=== PATIENT | female | born 1935 | race Caucasian/White ===

== ENCOUNTER 2017-12-10 09:49 | Outpatient (CLI) | payer MEDICARE, MEDICAID ==
[~2017-12-10 09:49] MED LIST: NO HOME MEDS
[2017-12-10] MEDS ORDERED: GLIP10TA11 PO (12:04)
[2017-12-10] MEDS ORDERED: ASPI-1265 PO (12:05)
== END 2017-12-10 14:00 | disposition home or self-care (01) ==
LOC: WOUND CARE 09:49
PROVIDERS: ATTEND Surgery
DX: E11.622 Type 2 diabetes mellitus with other skin ulcer (principal); I70.243 Atherosclerosis of native arteries of left leg with ulceration of ankle; L89.529 Pressure ulcer of left ankle, unspecified stage; L89.519 Pressure ulcer of right ankle, unspecified stage; L97.321 Non-pressure chronic ulcer of left ankle limited to breakdown of skin; L97.311 Non-pressure chronic ulcer of right ankle limited to breakdown of skin; L89.229 Pressure ulcer of left hip, unspecified stage; L89.219 Pressure ulcer of right hip, unspecified stage; L98.491 Non-pressure chronic ulcer of skin of other sites limited to breakdown of skin; L97.811 Non-pressure chronic ulcer of other part of right lower leg limited to breakdown of skin; E11.621 Type 2 diabetes mellitus with foot ulcer; L89.899 Pressure ulcer of other site, unspecified stage; L97.521 Non-pressure chronic ulcer of other part of left foot limited to breakdown of skin; L97.511 Non-pressure chronic ulcer of other part of right foot limited to breakdown of skin; L89.629 Pressure ulcer of left heel, unspecified stage; L97.421 Non-pressure chronic ulcer of left heel and midfoot limited to breakdown of skin; L97.411 Non-pressure chronic ulcer of right heel and midfoot limited to breakdown of skin; Z86.73 Personal history of transient ischemic attack (TIA), and cerebral infarction without residual deficits
CPT/HCPCS: 36416; 82948; 93925; 99215; A4649; A6196; A6206; A6212; A6213; A6446

== ENCOUNTER 2018-01-14 09:28 | Day surgery (SDC) | payer MEDICARE, MEDICAID ==
[~2018-01-14 09:28] MED LIST changes: +ASPI-1265 PO; +ATOR10TA PO; +FERR140T PO; +GLIP10TA11 PO; +LACT-28 PO; +LACT1CAP26 PO; +METF500T6 PO; -NO HOME MEDS
== END 2018-01-14 12:45 | disposition home or self-care (01) ==
LOC: WOUND CARE 09:28
PROVIDERS: ATTEND Surgery
DX: T81.89XA Other complications of procedures, not elsewhere classified, initial encounter (principal); E11.622 Type 2 diabetes mellitus with other skin ulcer; L89.223 Pressure ulcer of left hip, stage 3; L89.213 Pressure ulcer of right hip, stage 3; L89.894 Pressure ulcer of other site, stage 4; L89.610 Pressure ulcer of right heel, unstageable; L89.519 Pressure ulcer of right ankle, unspecified stage; L98.491 Non-pressure chronic ulcer of skin of other sites limited to breakdown of skin; L97.411 Non-pressure chronic ulcer of right heel and midfoot limited to breakdown of skin; L97.311 Non-pressure chronic ulcer of right ankle limited to breakdown of skin; L97.511 Non-pressure chronic ulcer of other part of right foot limited to breakdown of skin; E43 Unspecified severe protein-calorie malnutrition; E11.52 Type 2 diabetes mellitus with diabetic peripheral angiopathy with gangrene; I96 Gangrene, not elsewhere classified; R53.2 Functional quadriplegia; E11.69 Type 2 diabetes mellitus with other specified complication; M86.8X7 Other osteomyelitis, ankle and foot; Z79.4 Long term (current) use of insulin; Z79.01 Long term (current) use of anticoagulants; Z79.82 Long term (current) use of aspirin; Z79.899 Other long term (current) drug therapy; Z86.73 Personal history of transient ischemic attack (TIA), and cerebral infarction without residual deficits; Y83.8 Other surgical procedures as the cause of abnormal reaction of the patient, or of later complication, without mention of misadventure at the time of the procedure; Y92.89 Other specified places as the place of occurrence of the external cause
CPT/HCPCS: 99215; A6021; A6196; A6206; A6212; A6213

== ENCOUNTER 2018-01-26 08:35 | Day surgery (SDC) | payer MEDICARE, MEDICAID | END 2018-01-26 11:25 | disposition home or self-care (01) | LOC: WOUND CARE 08:35 | PROVIDERS: ATTEND Surgery | DX: T87.89 Other complications of amputation stump (principal); E11.622 Type 2 diabetes mellitus with other skin ulcer; L89.223 Pressure ulcer of left hip, stage 3; L89.213 Pressure ulcer of right hip, stage 3; L89.894 Pressure ulcer of other site, stage 4; L89.610 Pressure ulcer of right heel, unstageable; L89.519 Pressure ulcer of right ankle, unspecified stage; L98.491 Non-pressure chronic ulcer of skin of other sites limited to breakdown of skin; L97.411 Non-pressure chronic ulcer of right heel and midfoot limited to breakdown of skin; L89.890 Pressure ulcer of other site, unstageable; L97.311 Non-pressure chronic ulcer of right ankle limited to breakdown of skin; L97.511 Non-pressure chronic ulcer of other part of right foot limited to breakdown of skin; E43 Unspecified severe protein-calorie malnutrition; E11.52 Type 2 diabetes mellitus with diabetic peripheral angiopathy with gangrene; I96 Gangrene, not elsewhere classified; R53.2 Functional quadriplegia; E11.69 Type 2 diabetes mellitus with other specified complication; M86.8X7 Other osteomyelitis, ankle and foot; Z79.4 Long term (current) use of insulin; Z79.01 Long term (current) use of anticoagulants; Z79.82 Long term (current) use of aspirin; Z79.899 Other long term (current) drug therapy; Z86.73 Personal history of transient ischemic attack (TIA), and cerebral infarction without residual deficits; Y83.5 Amputation of limb(s) as the cause of abnormal reaction of the patient, or of later complication, without mention of misadventure at the time of the procedure | CPT/HCPCS: 11042; 11043; 11046; A6021; A6196; A6206; A6212; A6213 ==

== ENCOUNTER 2018-02-09 08:41 | Day surgery (SDC) | payer MEDICARE, MEDICAID ==
[~2018-02-09 08:41] MED LIST changes: -METF500T6 PO
== END 2018-02-09 11:01 | disposition home or self-care (01) ==
LOC: WOUND CARE 08:41
PROVIDERS: ATTEND Surgery
DX: T81.89XD Other complications of procedures, not elsewhere classified, subsequent encounter (principal); E11.622 Type 2 diabetes mellitus with other skin ulcer; L89.223 Pressure ulcer of left hip, stage 3; L89.213 Pressure ulcer of right hip, stage 3; L89.894 Pressure ulcer of other site, stage 4; L98.491 Non-pressure chronic ulcer of skin of other sites limited to breakdown of skin; L89.519 Pressure ulcer of right ankle, unspecified stage; L97.311 Non-pressure chronic ulcer of right ankle limited to breakdown of skin; E11.621 Type 2 diabetes mellitus with foot ulcer; L89.610 Pressure ulcer of right heel, unstageable; L97.411 Non-pressure chronic ulcer of right heel and midfoot limited to breakdown of skin; L89.890 Pressure ulcer of other site, unstageable; L97.511 Non-pressure chronic ulcer of other part of right foot limited to breakdown of skin; E43 Unspecified severe protein-calorie malnutrition; E11.52 Type 2 diabetes mellitus with diabetic peripheral angiopathy with gangrene; I96 Gangrene, not elsewhere classified; R53.2 Functional quadriplegia; E11.69 Type 2 diabetes mellitus with other specified complication; M86.8X7 Other osteomyelitis, ankle and foot; G89.29 Other chronic pain; Z79.4 Long term (current) use of insulin; Z79.01 Long term (current) use of anticoagulants; Z79.82 Long term (current) use of aspirin; Z79.899 Other long term (current) drug therapy; Z86.73 Personal history of transient ischemic attack (TIA), and cerebral infarction without residual deficits; Y83.5 Amputation of limb(s) as the cause of abnormal reaction of the patient, or of later complication, without mention of misadventure at the time of the procedure
CPT/HCPCS: 11042; A4649; A6021; A6206; A6212; 99215

== ENCOUNTER 2018-03-02 08:15 | Day surgery (SDC) | payer MEDICARE, MEDICAID ==
[2018-03-02] MEDS ORDERED: LIDOcaine 2% 5ml jelly ONE (09:54)
== END 2018-03-02 12:22 | disposition home or self-care (01) ==
LOC: WOUND CARE 08:15
PROVIDERS: ATTEND Surgery
DX: T87.89 Other complications of amputation stump (principal); E11.622 Type 2 diabetes mellitus with other skin ulcer; L89.223 Pressure ulcer of left hip, stage 3; L89.213 Pressure ulcer of right hip, stage 3; L89.894 Pressure ulcer of other site, stage 4; L98.491 Non-pressure chronic ulcer of skin of other sites limited to breakdown of skin; L89.519 Pressure ulcer of right ankle, unspecified stage; L97.311 Non-pressure chronic ulcer of right ankle limited to breakdown of skin; E11.621 Type 2 diabetes mellitus with foot ulcer; L89.610 Pressure ulcer of right heel, unstageable; L97.411 Non-pressure chronic ulcer of right heel and midfoot limited to breakdown of skin; L89.890 Pressure ulcer of other site, unstageable; L97.511 Non-pressure chronic ulcer of other part of right foot limited to breakdown of skin; E43 Unspecified severe protein-calorie malnutrition; E11.52 Type 2 diabetes mellitus with diabetic peripheral angiopathy with gangrene; I96 Gangrene, not elsewhere classified; R53.2 Functional quadriplegia; E11.69 Type 2 diabetes mellitus with other specified complication; M86.8X7 Other osteomyelitis, ankle and foot; G89.29 Other chronic pain; Z79.4 Long term (current) use of insulin; Z79.01 Long term (current) use of anticoagulants; Z79.82 Long term (current) use of aspirin; Z79.899 Other long term (current) drug therapy; Z86.73 Personal history of transient ischemic attack (TIA), and cerebral infarction without residual deficits; Y83.5 Amputation of limb(s) as the cause of abnormal reaction of the patient, or of later complication, without mention of misadventure at the time of the procedure
CPT/HCPCS: 11042; A6212; A6213; A6222

== ENCOUNTER 2018-03-30 08:22 | Day surgery (SDC) | payer MEDICARE, MEDICAID ==
[~2018-03-30 08:22] MED LIST changes: -FERR140T PO; +FERR140T2 PO
== END 2018-03-30 10:33 | disposition home or self-care (01) ==
LOC: WOUND CARE 08:22
PROVIDERS: ATTEND Surgery
DX: T87.89 Other complications of amputation stump (principal); E11.622 Type 2 diabetes mellitus with other skin ulcer; L89.223 Pressure ulcer of left hip, stage 3; L89.213 Pressure ulcer of right hip, stage 3; L89.894 Pressure ulcer of other site, stage 4; L98.491 Non-pressure chronic ulcer of skin of other sites limited to breakdown of skin; L97.311 Non-pressure chronic ulcer of right ankle limited to breakdown of skin; E11.621 Type 2 diabetes mellitus with foot ulcer; L89.610 Pressure ulcer of right heel, unstageable; L97.411 Non-pressure chronic ulcer of right heel and midfoot limited to breakdown of skin; L89.890 Pressure ulcer of other site, unstageable; L97.511 Non-pressure chronic ulcer of other part of right foot limited to breakdown of skin; E43 Unspecified severe protein-calorie malnutrition; E11.52 Type 2 diabetes mellitus with diabetic peripheral angiopathy with gangrene; I96 Gangrene, not elsewhere classified; R53.2 Functional quadriplegia; E11.69 Type 2 diabetes mellitus with other specified complication; M86.8X7 Other osteomyelitis, ankle and foot; G89.29 Other chronic pain; Z79.4 Long term (current) use of insulin; Z79.01 Long term (current) use of anticoagulants; Z79.82 Long term (current) use of aspirin; Z79.899 Other long term (current) drug therapy; Z86.73 Personal history of transient ischemic attack (TIA), and cerebral infarction without residual deficits; Y83.5 Amputation of limb(s) as the cause of abnormal reaction of the patient, or of later complication, without mention of misadventure at the time of the procedure
CPT/HCPCS: 17250; A6021; A6196; A6206; A6212

== ENCOUNTER 2018-04-20 08:43 | Day surgery (SDC) | payer MEDICARE, MEDICAID | END 2018-04-20 11:27 | disposition home or self-care (01) | LOC: WOUND CARE 08:43 | PROVIDERS: ATTEND Surgery | DX: T87.89 Other complications of amputation stump (principal); E11.622 Type 2 diabetes mellitus with other skin ulcer; L89.223 Pressure ulcer of left hip, stage 3; L89.213 Pressure ulcer of right hip, stage 3; L89.894 Pressure ulcer of other site, stage 4; L98.491 Non-pressure chronic ulcer of skin of other sites limited to breakdown of skin; L97.311 Non-pressure chronic ulcer of right ankle limited to breakdown of skin; E11.621 Type 2 diabetes mellitus with foot ulcer; L89.610 Pressure ulcer of right heel, unstageable; L97.411 Non-pressure chronic ulcer of right heel and midfoot limited to breakdown of skin; L89.890 Pressure ulcer of other site, unstageable; L97.511 Non-pressure chronic ulcer of other part of right foot limited to breakdown of skin; E43 Unspecified severe protein-calorie malnutrition; E11.52 Type 2 diabetes mellitus with diabetic peripheral angiopathy with gangrene; I96 Gangrene, not elsewhere classified; R53.2 Functional quadriplegia; E11.69 Type 2 diabetes mellitus with other specified complication; M86.8X7 Other osteomyelitis, ankle and foot; G89.29 Other chronic pain; Z79.4 Long term (current) use of insulin; Z79.01 Long term (current) use of anticoagulants; Z79.82 Long term (current) use of aspirin; Z79.899 Other long term (current) drug therapy; Z86.73 Personal history of transient ischemic attack (TIA), and cerebral infarction without residual deficits; Y83.5 Amputation of limb(s) as the cause of abnormal reaction of the patient, or of later complication, without mention of misadventure at the time of the procedure | CPT/HCPCS: 11042; 97597; 97598; A6021; A6196; A6212 ==

== ENCOUNTER 2018-05-11 08:09 | Day surgery (SDC) | payer MEDICARE, MEDICAID ==
[2018-05-11] MEDS ORDERED: LIDOcaine/PRILOcaine 5gm cream TP ONE (09:38)
== END 2018-05-11 10:38 | disposition home or self-care (01) ==
LOC: WOUND CARE 08:09
PROVIDERS: ATTEND Surgery
DX: T87.89 Other complications of amputation stump (principal); E11.622 Type 2 diabetes mellitus with other skin ulcer; L89.223 Pressure ulcer of left hip, stage 3; L89.213 Pressure ulcer of right hip, stage 3; L89.894 Pressure ulcer of other site, stage 4; L98.491 Non-pressure chronic ulcer of skin of other sites limited to breakdown of skin; L97.311 Non-pressure chronic ulcer of right ankle limited to breakdown of skin; E11.621 Type 2 diabetes mellitus with foot ulcer; L89.610 Pressure ulcer of right heel, unstageable; L97.411 Non-pressure chronic ulcer of right heel and midfoot limited to breakdown of skin; L89.890 Pressure ulcer of other site, unstageable; L97.511 Non-pressure chronic ulcer of other part of right foot limited to breakdown of skin; E43 Unspecified severe protein-calorie malnutrition; E11.52 Type 2 diabetes mellitus with diabetic peripheral angiopathy with gangrene; I96 Gangrene, not elsewhere classified; R53.2 Functional quadriplegia; E11.69 Type 2 diabetes mellitus with other specified complication; M86.8X7 Other osteomyelitis, ankle and foot; G89.29 Other chronic pain; Z79.4 Long term (current) use of insulin; Z79.01 Long term (current) use of anticoagulants; Z79.82 Long term (current) use of aspirin; Z79.899 Other long term (current) drug therapy; Z86.73 Personal history of transient ischemic attack (TIA), and cerebral infarction without residual deficits; Y83.5 Amputation of limb(s) as the cause of abnormal reaction of the patient, or of later complication, without mention of misadventure at the time of the procedure
CPT/HCPCS: 11042; 17250; A6021; A6206; A6212

== ENCOUNTER 2018-06-01 08:13 | Day surgery (SDC) | payer MEDICARE, MEDICAID ==
[2018-06-01] MEDS ORDERED: LIDOcaine/PRILOcaine 5gm cream TP ONE (09:50)
== END 2018-06-01 11:11 | disposition home or self-care (01) ==
LOC: WOUND CARE 08:13
PROVIDERS: ATTEND Surgery
DX: T87.89 Other complications of amputation stump (principal); E11.622 Type 2 diabetes mellitus with other skin ulcer; L89.213 Pressure ulcer of right hip, stage 3; L89.894 Pressure ulcer of other site, stage 4; L98.492 Non-pressure chronic ulcer of skin of other sites with fat layer exposed; E11.621 Type 2 diabetes mellitus with foot ulcer; L89.893 Pressure ulcer of other site, stage 3; L97.511 Non-pressure chronic ulcer of other part of right foot limited to breakdown of skin; E43 Unspecified severe protein-calorie malnutrition; E11.52 Type 2 diabetes mellitus with diabetic peripheral angiopathy with gangrene; I96 Gangrene, not elsewhere classified; R53.2 Functional quadriplegia; E11.69 Type 2 diabetes mellitus with other specified complication; M86.8X7 Other osteomyelitis, ankle and foot; G89.29 Other chronic pain; Z79.4 Long term (current) use of insulin; Z79.01 Long term (current) use of anticoagulants; Z79.82 Long term (current) use of aspirin; Z79.899 Other long term (current) drug therapy; Z86.73 Personal history of transient ischemic attack (TIA), and cerebral infarction without residual deficits; Y83.5 Amputation of limb(s) as the cause of abnormal reaction of the patient, or of later complication, without mention of misadventure at the time of the procedure
CPT/HCPCS: 11042; 11043; A6266; A6021; A6206; A6212; A6213; A6446

== ENCOUNTER 2018-06-15 08:05 | Day surgery (SDC) | payer MEDICARE, MEDICAID ==
[2018-06-18] MEDS ORDERED: CLIN150C8 PO (14:46)
== END 2018-06-15 11:10 | disposition home or self-care (01) ==
LOC: WOUND CARE 08:05
PROVIDERS: ATTEND Surgery
DX: T87.89 Other complications of amputation stump (principal); E11.622 Type 2 diabetes mellitus with other skin ulcer; L89.213 Pressure ulcer of right hip, stage 3; L89.223 Pressure ulcer of left hip, stage 3; L89.894 Pressure ulcer of other site, stage 4; L98.492 Non-pressure chronic ulcer of skin of other sites with fat layer exposed; E11.621 Type 2 diabetes mellitus with foot ulcer; L89.893 Pressure ulcer of other site, stage 3; L97.511 Non-pressure chronic ulcer of other part of right foot limited to breakdown of skin; E43 Unspecified severe protein-calorie malnutrition; E11.52 Type 2 diabetes mellitus with diabetic peripheral angiopathy with gangrene; I96 Gangrene, not elsewhere classified; R53.2 Functional quadriplegia; E11.69 Type 2 diabetes mellitus with other specified complication; M86.8X7 Other osteomyelitis, ankle and foot; G89.29 Other chronic pain; Z79.4 Long term (current) use of insulin; Z79.01 Long term (current) use of anticoagulants; Z79.82 Long term (current) use of aspirin; Z79.899 Other long term (current) drug therapy; Z86.73 Personal history of transient ischemic attack (TIA), and cerebral infarction without residual deficits; Y83.5 Amputation of limb(s) as the cause of abnormal reaction of the patient, or of later complication, without mention of misadventure at the time of the procedure
CPT/HCPCS: 97597; A6021; A6206; A6213

== ENCOUNTER 2018-06-22 08:10 | Day surgery (SDC) | payer MEDICARE, MEDICAID ==
[~2018-06-22 08:10] MED LIST changes: +CLIN150C8 PO
== END 2018-06-22 11:18 | disposition home or self-care (01) ==
LOC: WOUND CARE 08:10
PROVIDERS: ATTEND Surgery
DX: E11.622 Type 2 diabetes mellitus with other skin ulcer (principal); L89.213 Pressure ulcer of right hip, stage 3; L89.223 Pressure ulcer of left hip, stage 3; L89.894 Pressure ulcer of other site, stage 4; L98.492 Non-pressure chronic ulcer of skin of other sites with fat layer exposed; E11.621 Type 2 diabetes mellitus with foot ulcer; L89.893 Pressure ulcer of other site, stage 3; L97.511 Non-pressure chronic ulcer of other part of right foot limited to breakdown of skin; E43 Unspecified severe protein-calorie malnutrition; E11.52 Type 2 diabetes mellitus with diabetic peripheral angiopathy with gangrene; I96 Gangrene, not elsewhere classified; R53.2 Functional quadriplegia; E11.69 Type 2 diabetes mellitus with other specified complication; M86.8X7 Other osteomyelitis, ankle and foot; G89.29 Other chronic pain; Z79.4 Long term (current) use of insulin; Z79.01 Long term (current) use of anticoagulants; Z79.82 Long term (current) use of aspirin; Z79.899 Other long term (current) drug therapy; Z86.73 Personal history of transient ischemic attack (TIA), and cerebral infarction without residual deficits
CPT/HCPCS: 11043; 87070; 87075; 87102; 87176; A6266; 87077; 87186; A6021; A6206; A6212; A6213; A6446

== ENCOUNTER 2018-07-08 08:20 | Day surgery (SDC) | payer MEDICARE, MEDICAID | END 2018-07-08 10:47 | disposition home or self-care (01) | LOC: WOUND CARE 08:20 | PROVIDERS: ATTEND Surgery | DX: E11.622 Type 2 diabetes mellitus with other skin ulcer (principal); L89.213 Pressure ulcer of right hip, stage 3; L89.223 Pressure ulcer of left hip, stage 3; L89.894 Pressure ulcer of other site, stage 4; L98.492 Non-pressure chronic ulcer of skin of other sites with fat layer exposed; E11.621 Type 2 diabetes mellitus with foot ulcer; L89.893 Pressure ulcer of other site, stage 3; L97.511 Non-pressure chronic ulcer of other part of right foot limited to breakdown of skin; E43 Unspecified severe protein-calorie malnutrition; E11.52 Type 2 diabetes mellitus with diabetic peripheral angiopathy with gangrene; I96 Gangrene, not elsewhere classified; R53.2 Functional quadriplegia; E11.69 Type 2 diabetes mellitus with other specified complication; M86.8X7 Other osteomyelitis, ankle and foot; G89.29 Other chronic pain; Z79.4 Long term (current) use of insulin; Z79.01 Long term (current) use of anticoagulants; Z79.82 Long term (current) use of aspirin; Z79.899 Other long term (current) drug therapy; Z86.73 Personal history of transient ischemic attack (TIA), and cerebral infarction without residual deficits | CPT/HCPCS: 97597; A6021; A6206; A6212; A6213 ==

== ENCOUNTER 2018-07-31 12:38 | Inpatient (IN) | payer MEDICARE, MEDICAID ==
[~2018-07-31] VITALS: Ht 157.5 cm; Wt 49.6 kg
--- NOTE | 2018-07-31 12:45 | NUR ---
PATIENT AGREED TO BE EVALUATED IN HALLWAY 10.
--- NOTE | 2018-07-31 14:13 | NUR ---
SON AT BEDSIDE REPORTS MULTIPLE SKIN BREAKDOWN INCLUDING COCCYX AREA.
[2018-07-31 15:09] LABS: BASOPHILS % (AUTO) 0.4 % (0-1); EOSINOPHILS # (AUTO) 0.1 X10'3 (0-0.9); EOSINOPHILS % (AUTO) 0.9 % (0-6); HEMATOCRIT 35.1 % (35.0-45.0); HEMOGLOBIN 11.2 g/dl (12.0-16.0); LYMPHOCYTES # (AUTO) 2.1 X10'3 (1.1-4.8); LYMPHOCYTES % (AUTO) 21.2 % (21-51); MEAN CORPUSCULAR HEMOGLOBIN 28.1 PG (27.0-31.0); MEAN CORPUSCULAR HGB CONC 31.9 % (33.0-36.5); MEAN CORPUSCULAR VOLUME 88.3 FL (78-98); MONOCYTES # (AUTO) 0.4 X10'3 (0-0.9); MONOCYTES % (AUTO) 4.1 % (2-12); NEUTROPHILS # (AUTO) 7.5 X10'3 (1.8-7.7); NEUTROPHILS % (AUTO) 73.4 % (42-75); PLATELET COUNT 406 X10'3 (140-440); RED BLOOD COUNT 3.98 X10'6 (4.20-5.60); RED CELL DISTRIBUTION WIDTH 13.2 % (11.5-14.5); WHITE BLOOD COUNT 10.1 X10'3 (4.5-11.0)
[2018-07-31 15:20] LABS: ALANINE AMINOTRANSFERASE 14 U/L (12-78); ALBUMIN 2.5 G/DL (3.4-5.0); ALBUMIN/GLOBULIN RATIO 0.5 (1.1-1.5); ALKALINE PHOSPHATASE 81 IU/L (46-116); ANION GAP 7 (8-16); ASPARTATE AMINO TRANSFERASE 9 U/L (10-37); BILIRUBIN,TOTAL 0.2 MG/DL (0.1-1.0); BLOOD UREA NITROGEN 24 MG/DL (7-18); BUN/CREATININE RATIO 51.1 (6.6-38.0); CALCIUM 8.5 MG/DL (8.5-10.1); CHLORIDE 106 MMOL/L (99-107); CREATININE 0.47 MG/DL (0.40-0.90); GLUCOSE 244 MG/DL (70-104); SODIUM 142 MMOL/L (135-145); TOTAL CARBON DIOXIDE 28.8 MMOL/L (24-32); TOTAL PROTEIN 7.1 G/DL (6.4-8.2); eGFR > 90 ML/MIN
[2018-07-31 15:27] LABS: POTASSIUM 2.9 MMOL/L (3.5-5.1)
[2018-07-31] MEDS ORDERED: piperacillin/tazo 3.375gm/50ml 50 ML IV ONE (15:55)
[2018-07-31] MEDS ORDERED: vancomycin inj 1,000 MG in normal saline 250ml IV soln 250 ML IV STA (15:57)
[2018-07-31] MEDS ORDERED: vancomycin/NS 1 GM ADD-VANTAGE 250 ML X 1 DOSE IV ONE (16:00)
[2018-07-31] MEDS ORDERED: METF500T PO (16:19)
[2018-07-31] MEDS ORDERED: HYDROcodone/acetaminophen 5mg/325mg tablet PO PRN (17:30)
[2018-07-31] MEDS ORDERED: ondansetron/PF 4mg/2ml inj IV PRN (17:30)
[2018-07-31] MEDS ORDERED: mag hydrox/Alum hydrox/simeth 30ml oral suspension PO PRN (17:30)
[2018-07-31] MEDS ORDERED: dextrose ORAL solution 15 GM/59 ML bottle PO PRN ×2 (17:30)
[2018-07-31] MEDS ORDERED: morphine 4 MG/ML inj SYRINge IV PRN (17:30)
[2018-07-31] MEDS ORDERED: dextrose 50%-water 50ml dispensing syringe IV PRN ×2 (17:30)
[2018-07-31] MEDS ORDERED: MESSAGE TO PHARMACY PO ONE (17:30)
[2018-07-31] MEDS ORDERED: magnesium 4gm in 100ml NS 100 ML IV PRN (17:30)
[2018-07-31] MEDS ORDERED: potassium Cl 20 mEq SR tablet PO PRN ×2 (17:30)
[2018-07-31] MEDS ORDERED: acetaminophen 325mg tablet PO PRN ×2 (17:30)
[2018-07-31] MEDS ORDERED: magnesium Cl slow-release 64mg tablet PO PRN (17:30)
[2018-07-31] MEDS ORDERED: glucagon, human recombinant 1mg kit SUBCUT PRN (17:30)
[2018-07-31] MEDS ORDERED: magnesium 2GM in 50ml NS 50 ML IV PRN (17:30)
[2018-07-31] MEDS ORDERED: potassium Cl 40MEQ/NS 500ml 500 ML IV PRN (17:30)
[2018-07-31] MEDS: normal saline 1000ml 1,000 ML IV SCH (17:33)
[2018-07-31] MEDS: ferrous sulfate ER tablet 140 MG TABLET.ER PO SCH (20:00)
[2018-07-31] MEDS: docusate sod 100mg capsule PO SCH (20:00)
[2018-07-31] MEDS: heparin, porcine 5000 units/ml vial SQ SCH (20:19)
[2018-07-31] MEDS: potassium Cl 40MEQ/NS 500ml 500 ML IV PRN (20:29)
[2018-07-31] MEDS: insulin glargine (Lantus) pen - multi-dose SQ SCH (20:59)
[2018-07-31] MEDS ORDERED: temazepam 15mg capsule PO PRN (21:00)
[2018-08-01] MEDS: potassium Cl 40MEQ/NS 500ml 500 ML IV PRN (01:32)
--- NOTE | 2018-08-01 04:53 | NUR ---
PT HAD FECES INSIDE BRIEF, CLEANED PT, MOVED PT TO HOSPITAL BED AND SEND BOWEL SPECIMIN TO LAB TO TEST FOR C. DIFF. PT NOT PLACED BACK IN BRIEF, INSTEAD PLACED ON DRY FLOWS. PT STABLE AND COMFORTABLE AT THIS TIME.
[2018-08-01] MEDS: normal saline 1000ml 1,000 ML IV SCH ×2 (06:59→20:06)
--- NOTE | 2018-08-01 07:20 | NUR ---
cdiff rejected because it was to formed.
--- NOTE | 2018-08-01 07:37 | NUR ---
pt in no obvious distress. breathing well. not answering questions.
[2018-08-01 07:40] LABS: BASOPHILS % (AUTO) 0.4 % (0-1); EOSINOPHILS # (AUTO) 0.1 X10'3 (0-0.9); EOSINOPHILS % (AUTO) 0.8 % (0-6); HEMATOCRIT 36.5 % (35.0-45.0); HEMOGLOBIN 11.4 g/dl (12.0-16.0); LYMPHOCYTES # (AUTO) 2.4 X10'3 (1.1-4.8); LYMPHOCYTES % (AUTO) 23.8 % (21-51); MEAN CORPUSCULAR HEMOGLOBIN 27.7 PG (27.0-31.0); MEAN CORPUSCULAR HGB CONC 31.3 % (33.0-36.5); MEAN CORPUSCULAR VOLUME 88.5 FL (78-98); MEAN PLATELET VOLUME 8.3 FL (7.4-10.4); MONOCYTES # (AUTO) 0.5 X10'3 (0-0.9); MONOCYTES % (AUTO) 4.8 % (2-12); NEUTROPHILS # (AUTO) 7.3 X10'3 (1.8-7.7); NEUTROPHILS % (AUTO) 70.2 % (42-75); PLATELET COUNT 346 X10'3 (140-440); RED BLOOD COUNT 4.13 X10'6 (4.20-5.60); RED CELL DISTRIBUTION WIDTH 13.6 % (11.5-14.5); WHITE BLOOD COUNT 10.3 X10'3 (4.5-11.0)
[2018-08-01] MEDS: K and/or MAG REPLACEMENT MC SCH (08:00)
[2018-08-01] MEDS: docusate sod 100mg capsule PO SCH ×2 (08:00→19:58)
[2018-08-01 08:01] LABS: ALBUMIN 2.5 G/DL (3.4-5.0); ANION GAP 8 (8-16); BLOOD UREA NITROGEN 18 MG/DL (7-18); BUN/CREATININE RATIO 40.9 (6.6-38.0); CALCIUM 8.6 MG/DL (8.5-10.1); CHLORIDE 111 MMOL/L (99-107); CHOL/HDL RATIO 6.4 (0.00-4.99); CHOLESTEROL 212 MG/DL (0-200); CREATININE 0.44 MG/DL (0.40-0.90); GLUCOSE 139 MG/DL (70-104); HDL CHOLESTEROL 33 MG/DL (35-60); LDL CHOLESTEROL 142 MG/DL (50-100); POTASSIUM 4.2 MMOL/L (3.5-5.1); SODIUM 146 MMOL/L (135-145); TOTAL CARBON DIOXIDE 26.8 MMOL/L (24-32); TRIGLYCERIDES 178 MG/DL (20-135); eGFR > 90 ML/MIN
[2018-08-01] MEDS: aspirin 81mg tab.chew PO SCH (08:23)
[2018-08-01] MEDS: heparin, porcine 5000 units/ml vial SQ SCH ×2 (08:24→19:59)
[2018-08-01] MEDS: ferrous sulfate ER tablet 140 MG TABLET.ER PO SCH ×2 (08:58→19:58)
[2018-08-01] MEDS: vancomycin/NS 1 GM ADD-VANTAGE 250 ML IV SCH (17:00)
--- NOTE | 2018-08-01 18:30 | NUR ---
Received report from primary care nurse Nora HOOKS. Assumed patient care. Patient sitting up in bed watching TV. In no apparent distress on room air. Call light and items of frequent use within reach. Will continue to monitor for changes. Addendum: 08/02/18 at 0309 by Huong Patricio RN omit. Wrong patient
[2018-08-01 19:00] VITALS: BP 153/70
--- NOTE | 2018-08-01 19:02 | NUR ---
Problems reprioritized. Patient report given, questions answered & plan of care reviewed with Huong HOOKS.
--- NOTE | 2018-08-01 19:09 | NUR ---
Received report from Aislinn HOOKS. Assumed patient care. Patient is awake and alert but nonverbal. In no apparent distress. Call light and items of frequent use within reach. Will continue to monitor for changes.
[2018-08-01] MEDS: insulin glargine (Lantus) pen - multi-dose SQ SCH (21:00)
[2018-08-02] VITALS: BP 150/65
[2018-08-02 05:25] LABS: BASOPHILS # (AUTO) 0.1 X10'3 (0-0.2); BASOPHILS % (AUTO) 0.8 % (0-1); EOSINOPHILS # (AUTO) 0.1 X10'3 (0-0.9); EOSINOPHILS % (AUTO) 0.9 % (0-6); HEMATOCRIT 32.6 % (35.0-45.0); HEMOGLOBIN 10.1 g/dl (12.0-16.0); LYMPHOCYTES # (AUTO) 2.3 X10'3 (1.1-4.8); LYMPHOCYTES % (AUTO) 27.6 % (21-51); MEAN CORPUSCULAR HEMOGLOBIN 27.1 PG (27.0-31.0); MEAN CORPUSCULAR VOLUME 87.5 FL (78-98); MEAN PLATELET VOLUME 8.8 FL (7.4-10.4); MONOCYTES # (AUTO) 0.3 X10'3 (0-0.9); NEUTROPHILS # (AUTO) 5.5 X10'3 (1.8-7.7); NEUTROPHILS % (AUTO) 66.7 % (42-75); PLATELET COUNT 338 X10'3 (140-440); RED BLOOD COUNT 3.73 X10'6 (4.20-5.60); RED CELL DISTRIBUTION WIDTH 13.4 % (11.5-14.5); WHITE BLOOD COUNT 8.3 X10'3 (4.5-11.0)
[2018-08-02 05:54] LABS: ALBUMIN 2.2 G/DL (3.4-5.0); ANION GAP 10 (8-16); BLOOD UREA NITROGEN 11 MG/DL (7-18); BUN/CREATININE RATIO 33.3 (6.6-38.0); CALCIUM 8.1 MG/DL (8.5-10.1); CHLORIDE 109 MMOL/L (99-107); CREATININE 0.33 MG/DL (0.40-0.90); GLUCOSE 113 MG/DL (70-104); MAGNESIUM 1.8 MG/DL (1.5-2.4); SODIUM 144 MMOL/L (135-145); TOTAL CARBON DIOXIDE 25.2 MMOL/L (24-32); eGFR > 90 ML/MIN
--- NOTE | 2018-08-02 06:38 | NUR ---
Reported off to Aislinn HOOKS. Patient is awake and alert on room air. In no apparent distress. Call light and items of frequent use within reach.
[2018-08-02] MEDS ORDERED: lisinopril 10 MG tablet PO SCH (08:00)
[2018-08-02] MEDS: K and/or MAG REPLACEMENT MC SCH (08:00)
[2018-08-02] MEDS: normal saline 1000ml 1,000 ML IV SCH (08:31)
[2018-08-02] MEDS: aspirin 81mg tab.chew PO SCH (08:32)
[2018-08-02] MEDS: ferrous sulfate 300mg/5ml UD oral liquid PO SCH ×2 (08:32→20:00)
[2018-08-02] MEDS: heparin, porcine 5000 units/ml vial SQ SCH ×2 (08:33→20:07)
[2018-08-02] MEDS: docusate sodium 100mg/10ml UD cup PO SCH ×2 (08:34→20:06)
[2018-08-02] MEDS: potassium Cl 40MEQ/NS 500ml 500 ML IV PRN (08:41)
--- NOTE | 2018-08-02 11:49 | NUR ---
Wound consult: Pt with multiple wounds. 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 Per H&P on right lower extremity black eschar present over the fifth toe on the lateral side, signs of chronic wound present over second left toe, and second right toe showing signs of ischemia and early necrosis. Pt also with hx T2DM with current A1c 7.5. Per physical assessment pt nonverbal and A/O x1, DM and protein ed not appropriate at this time. Consult states pt is very thin, current wt is stable with documented wt from previous visits. Per documentation in previous records pt height it 60", currently recorded at 62", new BMI using 60" is 18.1, this still puts pt as underweight. Pt currently on a pureed heart healthy diet with documented PO intake 25/100/100% at breakfast this AM meeting nutrient needs. Noted that pt with severe weakness and some fluid retention. Pt currently meets criteria for malnutrition, MD notified. Will continue to follow. Recommendations: 1) Continue with pureed heart healthy diet 2) Monitor need for ONS 3) Wt per rx Addendum: 08/02/18 at [address] Amended: Links added.
--- NOTE | 2018-08-02 13:23 | NUR ---
11AM VITALS WERE 170'S SYSTOLIC, DR WOODS NOTIFIED, SHE SAID SHE WOULD ORDER BP MED FOR PT, SHE ORDERED AMLODIPINE FOR TOMORROW MORNING. PAGED HER TO CLAIRIFY ORDER IF SHE WANTED IT FOR TODAY. UNABLE TO GET AHOLD OF HER. RECHECKED BP AND IT IS NOW 139/69, HR 70. PT EATING, WITH AIDE. NO NEED FOR BP MED RIGHT NOW, WILL MONITOR.
[2018-08-02] MEDS: vancomycin/NS 1 GM ADD-VANTAGE 250 ML IV SCH (17:28)
--- NOTE | 2018-08-02 18:30 | NUR ---
Received report from JESSEE Tao and JESSEE Del Valle. Patient is awake and alert on room air, in no apparent distress. PCT at bedside. Call light and items of frequent use within reach. Will continue to monitor.
--- NOTE | 2018-08-02 18:40 | NUR ---
Problems reprioritized. Patient report given, questions answered & plan of care reviewed with sergio.
[2018-08-02 20:00] VITALS: BP 156/69
[2018-08-02] MEDS: insulin Lispro (HumaLOG) vial - multi-dose SQ SCH (21:54)
[2018-08-02] MEDS: insulin glargine (Lantus) pen - multi-dose SQ SCH (21:55)
[2018-08-03] VITALS: BP 144/63
[2018-08-03] MEDS ORDERED: furosemide 40mg/4ml inj IV ONE (00:05)
[2018-08-03] MEDS: normal saline 1000ml 1,000 ML IV SCH (00:19)
--- NOTE | 2018-08-03 06:11 | NUR ---
Problems reprioritized. Patient report given, questions answered & plan of care reviewed with JESSEE Melendez.
--- NOTE | 2018-08-03 06:13 | NUR ---
Patient in room [facility]. I have received report from JESSEE Tovar and had the opportunity to ask questions and assume patient care. Patient resting at this time. In no apparent distress on 2L NC. Call light and items of frequent use in reach of patient.
[2018-08-03 06:14] LABS: ALBUMIN 2.2 G/DL (3.4-5.0); ANION GAP 10 (8-16); BLOOD UREA NITROGEN 14 MG/DL (7-18); BUN/CREATININE RATIO 23.3 (6.6-38.0); CALCIUM 8.4 MG/DL (8.5-10.1); CHLORIDE 105 MMOL/L (99-107); GLUCOSE 301 MG/DL (70-104); MAGNESIUM 1.7 MG/DL (1.5-2.4); POTASSIUM 3.7 MMOL/L (3.5-5.1); SODIUM 141 MMOL/L (135-145); TOTAL CARBON DIOXIDE 25.7 MMOL/L (24-32); eGFR > 90 ML/MIN
[2018-08-03 06:18] LABS: BASOPHILS % (AUTO) 0.3 % (0-1); EOSINOPHILS % (AUTO) 0.1 % (0-6); HEMATOCRIT 32.2 % (35.0-45.0); HEMOGLOBIN 10.6 g/dl (12.0-16.0); LYMPHOCYTES # (AUTO) 1.6 X10'3 (1.1-4.8); LYMPHOCYTES % (AUTO) 11.7 % (21-51); MEAN CORPUSCULAR HEMOGLOBIN 28.8 PG (27.0-31.0); MEAN CORPUSCULAR HGB CONC 32.9 % (33.0-36.5); MEAN CORPUSCULAR VOLUME 87.5 FL (78-98); MEAN PLATELET VOLUME 9.3 FL (7.4-10.4); MONOCYTES # (AUTO) 0.4 X10'3 (0-0.9); MONOCYTES % (AUTO) 2.7 % (2-12); NEUTROPHILS # (AUTO) 11.5 X10'3 (1.8-7.7); NEUTROPHILS % (AUTO) 85.2 % (42-75); PLATELET COUNT 376 X10'3 (140-440); RED BLOOD COUNT 3.68 X10'6 (4.20-5.60); RED CELL DISTRIBUTION WIDTH 13.4 % (11.5-14.5); WHITE BLOOD COUNT 13.5 X10'3 (4.5-11.0)
[2018-08-03 07:00] VITALS: BP 130/48
[2018-08-03] MEDS: amLODIPine 5mg tablet PO SCH (08:00)
[2018-08-03] MEDS: docusate sodium 100mg/10ml UD cup PO SCH ×2 (08:00→20:21)
[2018-08-03] MEDS: aspirin 81mg tab.chew PO SCH (08:00)
[2018-08-03] MEDS: ferrous sulfate 300mg/5ml UD oral liquid PO SCH ×2 (08:00→20:21)
[2018-08-03] MEDS: lisinopril 10 MG tablet PO SCH (08:00)
[2018-08-03] MEDS: K and/or MAG REPLACEMENT MC SCH (08:00)
[2018-08-03] MEDS: heparin, porcine 5000 units/ml vial SQ SCH ×2 (08:00→20:21)
--- NOTE | 2018-08-03 09:00 | NUR ---
patient not opening eyes to voice or pain. Patient localizes to pain but will not wake up. Charge nurse (Varsha) came in to assess the patient and had no response either. Will page Dr. Mistry.
[2018-08-03] MEDS: insulin Lispro (HumaLOG) vial - multi-dose SQ SCH (09:09)
[2018-08-03 11:00] VITALS: BP 140/68
--- NOTE | 2018-08-03 11:00 | NUR ---
Dr. Mistry to see patient. Dr. Mistry did a sternal rub and patient opened eyes. Dr. Mistry says this is probably baseline. Will continue to monitor patient.
[2018-08-03] MEDS ORDERED: VANCOMYCIN LEVEL IV NR (16:30)
[2018-08-03] MEDS: vancomycin/NS 1 GM ADD-VANTAGE 250 ML IV SCH (17:15)
--- NOTE | 2018-08-03 18:54 | NUR ---
Problems reprioritized. Patient report given, questions answered & plan of care reviewed with JESSEE Tovar. Patient sleeping at this time. Call light and items of frequent use in reach of patient
--- NOTE | 2018-08-03 19:02 | NUR ---
Patient have not had dinner - will not administer nutritional/correctional insulin as her BG was 80mg/dL.
--- NOTE | 2018-08-03 19:15 | NUR ---
Patient unresponsive to voice, sternal rub done and opened eyes. O2 Saturation is 71% 2L NC. telecommunications technician and Salena RN at bedside positioned patient to high helms's and suctioned patient. O2 Sat now up to 90%. 1916 MD Rajiv called and he deferred to hospitalist care. 1922 MD Guillermina called, came by and checked on patient. Placed on non-rebreather - now O2 sat at 96%. Will continue to monitor.
[2018-08-03 20:00] VITALS: BP 140/64
[2018-08-03] MEDS: lactobacillus rhamnosus 10,000 MMU CELLS/CAPSULE PO SCH (20:00)
[2018-08-03] MEDS: insulin glargine (Lantus) pen - multi-dose SQ SCH (20:33)
[2018-08-04] VITALS: BP 132/57
--- NOTE | 2018-08-04 01:15 | NUR ---
Patient in room [facility]. I have received report from JESSEE Tovar and had the opportunity to ask questions and assume patient care.
--- NOTE | 2018-08-04 02:00 | NUR ---
Jason Murcia RN have reviewed JESSEE Tovar physical assessment charting and agree with her documentation.
[2018-08-04] MEDS: normal saline 1000ml 1,000 ML IV SCH ×2 (04:22→16:55)
--- NOTE | 2018-08-04 04:45 | NUR ---
Called by RN to NT Suction patient.Patient currently of 50% venti mask with an SpO2 of 96-97%. Auscultation reveals diminished breath sounds with few rhonchi. NT suction not indicated at this time. RN to page RT if conditions change.
[2018-08-04 05:22] LABS: BASOPHILS % (AUTO) 0.1 % (0-1); EOSINOPHILS % (AUTO) 0 % (0-6); HEMATOCRIT 32.6 % (35.0-45.0); HEMOGLOBIN 10.6 g/dl (12.0-16.0); LYMPHOCYTES # (AUTO) 1.4 X10'3 (1.1-4.8); LYMPHOCYTES % (AUTO) 11.6 % (21-51); MEAN CORPUSCULAR HEMOGLOBIN 28.3 PG (27.0-31.0); MEAN CORPUSCULAR HGB CONC 32.4 % (33.0-36.5); MEAN CORPUSCULAR VOLUME 87.2 FL (78-98); MEAN PLATELET VOLUME 8.7 FL (7.4-10.4); MONOCYTES # (AUTO) 0.2 X10'3 (0-0.9); NEUTROPHILS # (AUTO) 10.8 X10'3 (1.8-7.7); NEUTROPHILS % (AUTO) 86.3 % (42-75); PLATELET COUNT 368 X10'3 (140-440); RED BLOOD COUNT 3.74 X10'6 (4.20-5.60); RED CELL DISTRIBUTION WIDTH 13.4 % (11.5-14.5); WHITE BLOOD COUNT 12.4 X10'3 (4.5-11.0)
[2018-08-04 05:37] LABS: ANION GAP 9 (8-16); BLOOD UREA NITROGEN 14 MG/DL (7-18); CALCIUM 8.6 MG/DL (8.5-10.1); CHLORIDE 107 MMOL/L (99-107); GLUCOSE 90 MG/DL (70-104); MAGNESIUM 1.7 MG/DL (1.5-2.4); POTASSIUM 3.1 MMOL/L (3.5-5.1); SODIUM 144 MMOL/L (135-145); TOTAL CARBON DIOXIDE 28.1 MMOL/L (24-32); eGFR > 90 ML/MIN
--- NOTE | 2018-08-04 06:20 | NUR ---
Problems reprioritized. Patient report given, questions answered & plan of care reviewed with JESSEE Andres.
--- NOTE | 2018-08-04 07:31 | NUR ---
Notified Dr Mistry of patients condition this morning. Patients is on 50% Venti mask sats are 98%, Patients RR 20 Patient is non responsive to name sternal rub patient winces but will not open eyes or respond to commands. Per Dr Mistry he would like patients sats to be 93% paged RT to assist with venti mask.
--- NOTE | 2018-08-04 07:36 | NUR ---
Changed patients Venti mask to 35% on 12L will reassess and monitor patients O2 sats
[2018-08-04 07:37] VITALS: BP 124/73
[2018-08-04] MEDS: ipratropium/albuterol 3ml nebule NEB SCH ×3 (07:50→20:18)
[2018-08-04] MEDS ORDERED: ipratropium/albuterol 3ml nebule ONE (07:50)
[2018-08-04] MEDS: budesonide 0.5mg/2ml UD nebule IH SCH ×2 (07:51→20:19)
[2018-08-04] MEDS: K and/or MAG REPLACEMENT MC SCH (08:00)
[2018-08-04] MEDS: amLODIPine 5mg tablet PO SCH (08:00)
[2018-08-04] MEDS: docusate sodium 100mg/10ml UD cup PO SCH ×2 (08:00→20:00)
[2018-08-04] MEDS: lisinopril 10 MG tablet PO SCH (08:00)
[2018-08-04] MEDS: lactobacillus rhamnosus 10,000 MMU CELLS/CAPSULE PO SCH ×2 (08:00→20:00)
[2018-08-04] MEDS: aspirin 81mg tab.chew PO SCH (08:00)
[2018-08-04] MEDS: ferrous sulfate 300mg/5ml UD oral liquid PO SCH ×2 (08:00→20:00)
[2018-08-04] MEDS: heparin, porcine 5000 units/ml vial SQ SCH ×2 (09:29→20:32)
[2018-08-04] MEDS ORDERED: potassium Cl 40MEQ/NS 500ml 500 ML IV PRN ×2 (09:30)
[2018-08-04] MEDS ORDERED: magnesium 4gm in 100ml NS 100 ML IV PRN (09:30)
[2018-08-04] MEDS ORDERED: potassium Cl 20 mEq SR tablet PO PRN ×2 (09:30)
[2018-08-04] MEDS ORDERED: magnesium Cl slow-release 64mg tablet PO PRN (09:30)
[2018-08-04] MEDS ORDERED: LIDOcaine 1% 30ml vial 5 ML in potassium Cl 40MEQ/NS 500ml 500 ML IV PRN (09:35)
[2018-08-04 11:00] VITALS: BP 130/70
--- NOTE | 2018-08-04 11:57 | NUR ---
Bladder scanned patient with hearn catheter in place. Bladder scan showes 102ml's in bladder. Addendum: 08/04/18 at 1158 by Mckenna Goldman RN Dr Fede suarez
[2018-08-04] MEDS: vancomycin inj 1,250 MG in normal saline 250ml IV soln 250 ML IV SCH (17:00)
--- NOTE | 2018-08-04 18:45 | NUR ---
Problems reprioritized. Patient report given, questions answered & plan of care reviewed with Edinson HOOKS.
[2018-08-04 19:00] VITALS: BP 160/62
[2018-08-04] MEDS: insulin glargine (Lantus) pen - multi-dose SQ SCH (21:00)
[2018-08-05] VITALS: BP 137/74
[2018-08-05] MEDS: ipratropium/albuterol 3ml nebule NEB SCH ×4 (02:05→20:58)
--- NOTE | 2018-08-05 06:58 | NUR ---
Patient in room [facility]. I have received report from Edinson HOOKS and had the opportunity to ask questions and assume patient care.
[2018-08-05 07:00] VITALS: BP 150/62
--- NOTE | 2018-08-05 07:02 | NUR ---
Problems reprioritized. Patient report given, questions answered & plan of care reviewed with SULY. Addendum: 08/05/18 at 0703 by Rio Mcnair RN Amended: Links added.
[2018-08-05] MEDS: normal saline 1000ml 1,000 ML IV SCH (07:11)
[2018-08-05] MEDS: heparin, porcine 5000 units/ml vial SQ SCH ×2 (07:12→21:51)
[2018-08-05] MEDS: budesonide 0.5mg/2ml UD nebule IH SCH ×2 (07:20→20:58)
[2018-08-05] MEDS: docusate sodium 100mg/10ml UD cup PO SCH ×2 (08:00→20:00)
[2018-08-05] MEDS: aspirin 81mg tab.chew PO SCH (08:00)
[2018-08-05] MEDS: lisinopril 10 MG tablet PO SCH (08:00)
[2018-08-05] MEDS: ferrous sulfate 300mg/5ml UD oral liquid PO SCH ×2 (08:00→20:00)
[2018-08-05] MEDS: K and/or MAG REPLACEMENT MC SCH (08:00)
[2018-08-05] MEDS: amLODIPine 5mg tablet PO SCH (08:00)
[2018-08-05] MEDS: lactobacillus rhamnosus 10,000 MMU CELLS/CAPSULE PO SCH ×2 (08:00→20:00)
[2018-08-05 08:49] LABS: BASOPHILS % (AUTO) 0.2 % (0-1); EOSINOPHILS % (AUTO) 0 % (0-6); HEMATOCRIT 29.8 % (35.0-45.0); HEMOGLOBIN 9.6 g/dl (12.0-16.0); LYMPHOCYTES # (AUTO) 0.7 X10'3 (1.1-4.8); LYMPHOCYTES % (AUTO) 10.4 % (21-51); MEAN CORPUSCULAR HGB CONC 32.1 % (33.0-36.5); MEAN CORPUSCULAR VOLUME 87.4 FL (78-98); MONOCYTES # (AUTO) 0.2 X10'3 (0-0.9); MONOCYTES % (AUTO) 3.5 % (2-12); NEUTROPHILS # (AUTO) 5.5 X10'3 (1.8-7.7); NEUTROPHILS % (AUTO) 85.9 % (42-75); PLATELET COUNT 336 X10'3 (140-440); RED BLOOD COUNT 3.41 X10'6 (4.20-5.60); RED CELL DISTRIBUTION WIDTH 14.9 % (11.5-14.5); WHITE BLOOD COUNT 6.4 X10'3 (4.5-11.0)
[2018-08-05 09:16] LABS: ALBUMIN 1.8 G/DL (3.4-5.0); ANION GAP 9 (8-16); BLOOD UREA NITROGEN 16 MG/DL (7-18); BUN/CREATININE RATIO 37.2 (6.6-38.0); CHLORIDE 111 MMOL/L (99-107); CREATININE 0.43 MG/DL (0.40-0.90); GLUCOSE 94 MG/DL (70-104); POTASSIUM 3.4 MMOL/L (3.5-5.1); SODIUM 146 MMOL/L (135-145); TOTAL CARBON DIOXIDE 25.7 MMOL/L (24-32); eGFR > 90 ML/MIN
[2018-08-05 11:00] VITALS: BP 165/70
[2018-08-05] MEDS ORDERED: LIDOcaine 1% 30ml vial 5 ML in potassium Cl 40MEQ/NS 500ml 500 ML IV ONE (13:40)
[2018-08-05] MEDS: potassium cl 20mEq in 1/2 NS 1,000 ML IV SCH ×2 (14:55→22:15)
--- NOTE | 2018-08-05 15:16 | NUR ---
Reassessment:Per note pt went into respiratory failure 08/03 and pt continues on BiPAP. Pt previously on Heart Healthy and CHO control diet w/ 100% PO intake however, documented refusals of meals since 08/03 and diet order has been d/c'ed. LBM 08/05, noted to be diarrhea. Will continue to monitor and make rec as appropriate. Recommendations: 1) Advance to heart healthy CHO control diet as medically indicated 2) Monitor need for ONS with diet advancement 3) Wt per rx Addendum: 08/05/18 at [address] Amended: Links added. Addendum: 08/05/18 at [address] I have reviewed and approve of note by Experimental Mechanic Electrical. Helena Sierra RD
[2018-08-05 15:30] LABS: CLARITY,URINE CLOUDY (Clear); COLOR,URINE YELLOW (Yellow); GLUCOSE, URINE NEGATIVE (Neg); KETONES,URINE 15 mg/dl (Neg); LEUKOCYTE ESTERASE ,URINE SMALL (Neg); NITRITES, URINE POSITIVE (Neg); OCCULT BLOOD,URINE LARGE (Neg); PH,URINE 5.5 (4.8-8.0); PROTEIN,URINE 30 mg/dl (Neg); UROBILINOGEN,URINE 0.2 E.U/dL (0.2-1.0)
[2018-08-05 15:38] LABS: UA COLLECTION TYPE FOLEY CATH
[2018-08-05 15:39] LABS: BACTERIA,URINE 3+ /HPF (Neg); COARSE GRANULAR CAST >30 /LPF (NEGATIVE); SQUAMOUS EPITHELIAL CELL,UR MODERATE /LPF (FEW)
[2018-08-05 15:41] LABS: AMORPHOUS URATES 2+
[2018-08-05] MEDS: vancomycin inj 1,250 MG in normal saline 250ml IV soln 250 ML IV SCH (16:54)
--- NOTE | 2018-08-05 18:51 | NUR ---
Problems reprioritized. Patient report given, questions answered & plan of care reviewed with Yuliya HOOKS.
--- NOTE | 2018-08-05 18:51 | NUR ---
Patient in room [facility]. I have received report from Mckenna HOOKS and had the opportunity to ask questions and assume patient care. Patient resting in bed eyes closed, respirations even. Will continue to monitor.
[2018-08-05 20:00] VITALS: BP 149/66
[2018-08-05] MEDS: insulin glargine (Lantus) pen - multi-dose SQ SCH (21:00)
[2018-08-06] VITALS: BP 144/64
[2018-08-06] MEDS: ipratropium/albuterol 3ml nebule NEB SCH ×4 (03:21→20:13)
[2018-08-06 06:06] LABS: MAGNESIUM 1.7 MG/DL (1.5-2.4)
--- NOTE | 2018-08-06 06:30 | NUR ---
Problems reprioritized. Patient report given, questions answered & plan of care reviewed with Nora HOOKS. Patient resting with nasal cannula in mouth.
--- NOTE | 2018-08-06 06:56 | NUR ---
Patient in room [facility]. I have received report from JESSEE Acevedo and had the opportunity to ask questions and assume patient care. Patient eyes open at this time. In no apparent distress on 4L NC with NC in mouth. Call light and items of frequent use in reach of patient.
[2018-08-06] MEDS: K and/or MAG REPLACEMENT MC SCH (07:49)
[2018-08-06] MEDS: aspirin 81mg tab.chew PO SCH (07:50)
[2018-08-06] MEDS: docusate sodium 100mg/10ml UD cup PO SCH ×2 (07:50→19:28)
[2018-08-06] MEDS: lisinopril 10 MG tablet PO SCH (07:50)
[2018-08-06] MEDS: lactobacillus rhamnosus 10,000 MMU CELLS/CAPSULE PO SCH ×2 (07:50→19:28)
[2018-08-06] MEDS: amLODIPine 5mg tablet PO SCH (07:50)
[2018-08-06] MEDS: ferrous sulfate 300mg/5ml UD oral liquid PO SCH ×2 (07:50→19:29)
[2018-08-06] MEDS: potassium cl 20mEq in 1/2 NS 1,000 ML IV SCH ×2 (07:54→17:30)
[2018-08-06] MEDS: heparin, porcine 5000 units/ml vial SQ SCH ×2 (07:55→19:44)
[2018-08-06 08:00] VITALS: BP 146/64
[2018-08-06] MEDS: budesonide 0.5mg/2ml UD nebule IH SCH ×2 (08:00→20:13)
[2018-08-06 11:00] VITALS: BP 129/58
[2018-08-06] MEDS: vancomycin inj 1,250 MG in normal saline 250ml IV soln 250 ML IV SCH (17:30)
[2018-08-06 18:00] VITALS: BP 149/74
--- NOTE | 2018-08-06 18:20 | NUR ---
Patient in room [facility]. I have received report from Nora HOOKS and had the opportunity to ask questions and assume patient care. Patient resting with oxygen saturation in mid 90s, repositioned patient with RN. Will continue to monitor.
--- NOTE | 2018-08-06 18:48 | NUR ---
Problems reprioritized. Patient report given, questions answered & plan of care reviewed with JESSEE Acevedo. Patient resting comfortably at this time. Patient was repositioned with Kristina HOOKS. No apparent distress on 4L NC. Call light and items of frequent use in reach of patient.
--- NOTE | 2018-08-06 19:00 | NUR ---
Patient's son here concerned about patient's wound and repositioning. States that he feels that the patient is always in the same position. Explained that I had just changed her position with the nurse on dayshift during report. Then patient's son states that he does not want her sitting up. Explained that in position patient is in now she is only saturating 80% because he lowered bed. Explained that the priority is her breathing at this time and elevated HOB and suctioned patient. Patient's son requested plan of care, I explained that I was on my way to give pain medication but that I would be back with my computer to further explain. He states he will wait for me to return. When I returned patient's son was no longer in room. Called patient's son cellphone and he did not answer, I left message for return if he has any questions and apologized for the delay. Will continue to monitor.
[2018-08-06 19:58] LABS: POTASSIUM 4.2 MMOL/L (3.5-5.1)
[2018-08-06] MEDS: insulin glargine (Lantus) pen - multi-dose SQ SCH (21:00)
[2018-08-07] VITALS: BP 142/63
[2018-08-07] MEDS: ipratropium/albuterol 3ml nebule NEB SCH ×3 (03:14→15:00)
[2018-08-07] MEDS: potassium cl 20mEq in 1/2 NS 1,000 ML IV SCH ×3 (04:15→17:19)
[2018-08-07 05:02] LABS: BASOPHILS % (AUTO) 0.1 % (0-1); EOSINOPHILS % (AUTO) 0 % (0-6); HEMATOCRIT 29.3 % (35.0-45.0); HEMOGLOBIN 9.3 g/dl (12.0-16.0); LYMPHOCYTES # (AUTO) 0.6 X10'3 (1.1-4.8); LYMPHOCYTES % (AUTO) 8.6 % (21-51); MEAN CORPUSCULAR HGB CONC 31.8 % (33.0-36.5); MEAN CORPUSCULAR VOLUME 88.1 FL (78-98); MEAN PLATELET VOLUME 8.1 FL (7.4-10.4); MONOCYTES # (AUTO) 0.4 X10'3 (0-0.9); NEUTROPHILS # (AUTO) 6.1 X10'3 (1.8-7.7); NEUTROPHILS % (AUTO) 86.3 % (42-75); PLATELET COUNT 395 X10'3 (140-440); RED BLOOD COUNT 3.33 X10'6 (4.20-5.60); RED CELL DISTRIBUTION WIDTH 14.9 % (11.5-14.5); WHITE BLOOD COUNT 7.1 X10'3 (4.5-11.0)
[2018-08-07 05:25] LABS: ALBUMIN 1.6 G/DL (3.4-5.0); ANION GAP 13 (8-16); BLOOD UREA NITROGEN 15 MG/DL (7-18); BUN/CREATININE RATIO 27.8 (6.6-38.0); CALCIUM 8.8 MG/DL (8.5-10.1); CHLORIDE 107 MMOL/L (99-107); CREATININE 0.54 MG/DL (0.40-0.90); GLUCOSE 104 MG/DL (70-104); MAGNESIUM 1.8 MG/DL (1.5-2.4); POTASSIUM 3.9 MMOL/L (3.5-5.1); SODIUM 142 MMOL/L (135-145); TOTAL CARBON DIOXIDE 22.2 MMOL/L (24-32); eGFR > 90 ML/MIN
[2018-08-07 06:09] LABS: ANISOCYTOSIS 1+; HYPOCHROMASIA 1+; PLATELET ESTIMATE NORMAL; TOTAL CELLS COUNTED 100
--- NOTE | 2018-08-07 06:42 | NUR ---
Problems reprioritized. Patient report given, questions answered & plan of care reviewed with Poppy RN. Patient resting eyes closed respirations even.
--- NOTE | 2018-08-07 06:45 | NUR ---
bedscale weight obtained with 6 pillows on bed.
[2018-08-07] MEDS: K and/or MAG REPLACEMENT MC SCH (07:09)
[2018-08-07] MEDS: amLODIPine 5mg tablet PO SCH (07:10)
[2018-08-07] MEDS: aspirin 81mg tab.chew PO SCH (07:10)
[2018-08-07] MEDS: lisinopril 10 MG tablet PO SCH (07:10)
[2018-08-07] MEDS: docusate sodium 100mg/10ml UD cup PO SCH ×2 (07:10→20:00)
[2018-08-07] MEDS: lactobacillus rhamnosus 10,000 MMU CELLS/CAPSULE PO SCH ×2 (07:10→20:00)
[2018-08-07] MEDS: ferrous sulfate 300mg/5ml UD oral liquid PO SCH ×2 (07:10→20:00)
[2018-08-07] MEDS: heparin, porcine 5000 units/ml vial SQ SCH ×2 (07:19→20:10)
[2018-08-07 08:00] VITALS: BP 127/65
[2018-08-07] MEDS: budesonide 0.5mg/2ml UD nebule IH SCH (08:00)
[2018-08-07 11:37] VITALS: BP 132/72
--- NOTE | 2018-08-07 12:19 | NUR ---
Reassessment: Pt failed BSS 08/07 and [facility] recs alt nutrition d/t unsafe PO, pt now day 4 with no nutrition. Pt currently w/o a diet order, paged MD the following: "Per [facility] consult pt cannot swallow and recs alt nutrition. Noted that pt nonverbal, encephalopathic. Pt needs MD order for NPO. Is tube feeding part of care plan?". Will continue to follow patient's plan of care and make recommendations as appropriate. Recommendations: 1) Continue NPO per [facility] recs 2) Monitor appropriateness of nutrition r/t patient's current plan of care 3) Wt per rx Addendum: 08/07/18 at [address] Amended: Links added.
[2018-08-07] MEDS ORDERED: VANCOMYCIN LEVEL IV NR (16:30)
[2018-08-07] MEDS: vancomycin inj 1,250 MG in normal saline 250ml IV soln 250 ML IV SCH (17:18)
--- NOTE | 2018-08-07 18:23 | NUR ---
Patient in room [facility]. I have received report from Poppy and had the opportunity to ask questions and assume patient care. Ptin bed, o2 on, sleeping comfortably.
--- NOTE | 2018-08-07 18:39 | NUR ---
Problems reprioritized. Patient report given, questions answered & plan of care reviewed with JESSEE Mcdermott.
[2018-08-07] MEDS ORDERED: BUDESONIDE 0.25 MG/2 ML AMPUL.NEB IH SCH (20:21)
[2018-08-07 20:40] VITALS: BP 155/75
--- NOTE | 2018-08-07 20:45 | NUR ---
Patient had episode of destatting, o2 down to 49 on NC @ 4L. RR 28, HR 110. Respiratory paged, came and placed pt on venturi mask at 40% and did NT suction. Pt now at 92%, sleeping comfortably.
[2018-08-07] MEDS: BUDESONIDE 0.25 MG/2 ML AMPUL.NEB IH SCH (20:51)
[2018-08-07] MEDS: insulin glargine (Lantus) pen - multi-dose SQ SCH (21:00)
[2018-08-08] VITALS: BP 130/57
[2018-08-08] MEDS: ipratropium/albuterol 3ml nebule NEB SCH ×4 (03:14→19:16)
[2018-08-08 06:28] LABS: BASOPHILS % (AUTO) 0.2 % (0-1); EOSINOPHILS % (AUTO) 0 % (0-6); HEMATOCRIT 30.3 % (35.0-45.0); HEMOGLOBIN 9.7 g/dl (12.0-16.0); LYMPHOCYTES # (AUTO) 0.9 X10'3 (1.1-4.8); LYMPHOCYTES % (AUTO) 11.5 % (21-51); MEAN CORPUSCULAR HEMOGLOBIN 28.2 PG (27.0-31.0); MEAN CORPUSCULAR HGB CONC 32.1 % (33.0-36.5); MEAN CORPUSCULAR VOLUME 87.7 FL (78-98); MEAN PLATELET VOLUME 8.5 FL (7.4-10.4); MONOCYTES # (AUTO) 0.2 X10'3 (0-0.9); MONOCYTES % (AUTO) 3.2 % (2-12); NEUTROPHILS # (AUTO) 6.3 X10'3 (1.8-7.7); NEUTROPHILS % (AUTO) 85.1 % (42-75); PLATELET COUNT 354 X10'3 (140-440); RED BLOOD COUNT 3.45 X10'6 (4.20-5.60); RED CELL DISTRIBUTION WIDTH 15.2 % (11.5-14.5); WHITE BLOOD COUNT 7.4 X10'3 (4.5-11.0)
--- NOTE | 2018-08-08 06:30 | NUR ---
Patient in room [facility]. I have received report from Baldemar HOOKS and had the opportunity to ask questions and assume patient care.
[2018-08-08 06:40] LABS: ALBUMIN 1.6 G/DL (3.4-5.0); ANION GAP 12 (8-16); BLOOD UREA NITROGEN 17 MG/DL (7-18); BUN/CREATININE RATIO 27.9 (6.6-38.0); CHLORIDE 108 MMOL/L (99-107); CREATININE 0.61 MG/DL (0.40-0.90); GLUCOSE 95 MG/DL (70-104); POTASSIUM 3.3 MMOL/L (3.5-5.1); SODIUM 146 MMOL/L (135-145); TOTAL CARBON DIOXIDE 25.7 MMOL/L (24-32); eGFR > 90 ML/MIN
--- NOTE | 2018-08-08 06:50 | NUR ---
Problems reprioritized. Patient report given, questions answered & plan of care reviewed with Lizabeth HOOKS.
--- NOTE | 2018-08-08 07:00 | NUR ---
Will use lab from today for Glucose of 95 instead of sticking patient for comfort reasons.
[2018-08-08] MEDS: aspirin 81mg tab.chew PO SCH (07:25)
[2018-08-08] MEDS: ferrous sulfate 300mg/5ml UD oral liquid PO SCH ×2 (07:25→20:00)
[2018-08-08] MEDS: lactobacillus rhamnosus 10,000 MMU CELLS/CAPSULE PO SCH ×2 (07:25→20:00)
[2018-08-08] MEDS: amLODIPine 5mg tablet PO SCH (07:25)
[2018-08-08] MEDS: docusate sodium 100mg/10ml UD cup PO SCH ×2 (07:25→21:17)
[2018-08-08] MEDS: lisinopril 10 MG tablet PO SCH (07:26)
[2018-08-08] MEDS: K and/or MAG REPLACEMENT MC SCH (07:27)
[2018-08-08] MEDS: BUDESONIDE 0.25 MG/2 ML AMPUL.NEB IH SCH ×2 (08:00→19:17)
[2018-08-08] MEDS: potassium cl 20mEq in 1/2 NS 1,000 ML IV SCH (08:21)
[2018-08-08] MEDS: heparin, porcine 5000 units/ml vial SQ SCH ×2 (08:27→19:50)
[2018-08-08] MEDS: dextrose 5%-1/2 normal saline 1,000 ML IV SCH (11:33)
[2018-08-08 12:10] VITALS: BP 162/76
--- NOTE | 2018-08-08 12:44 | NUR ---
Son Luis is at bedside. Comfort Care was discussed with Luis. He states that he will go talk with other family members and make a decision concerning their wishes tomorrow.
[2018-08-08] MEDS ORDERED: potassium Cl 20 mEq SR tablet PO PRN ×2 (14:25)
[2018-08-08] MEDS ORDERED: potassium Cl 40MEQ/NS 500ml 500 ML IV PRN ×2 (14:25)
[2018-08-08] MEDS ORDERED: LIDOcaine 1% 30ml vial 5 ML in potassium Cl 40MEQ/NS 500ml 500 ML IV ONE (14:30)
--- NOTE | 2018-08-08 16:39 | NUR ---
Called pharmacy to inform patient doesn't have an IV but has Rani scheduled at 1700. Pharmacist states that it's a Qday order and it can be given late when IV started and the Rani Lauren will see the start time.
[2018-08-08] MEDS ORDERED: vancomycin/NS 1 GM ADD-VANTAGE 250 ML IV SCH (17:00)
[2018-08-08 18:00] VITALS: BP 189/86
--- NOTE | 2018-08-08 18:12 | NUR ---
Problems reprioritized. Patient report given, questions answered & plan of care reviewed with Baldemar HOOKS.
--- NOTE | 2018-08-08 20:26 | NUR ---
Reported BP of 179/79 to Kenny TAI, no new orders received. Willcontinue to monitor patient
[2018-08-08] MEDS: insulin glargine (Lantus) pen - multi-dose SQ SCH (21:00)
[2018-08-09] VITALS: BP 175/81
[2018-08-09] MEDS: ipratropium/albuterol 3ml nebule NEB SCH ×3 (01:54→17:50)
[2018-08-09] MEDS: dextrose 5%-1/2 normal saline 1,000 ML IV SCH (05:50)
[2018-08-09 06:24] LABS: ALBUMIN 1.7 G/DL (3.4-5.0); ANION GAP 11 (8-16); BLOOD UREA NITROGEN 13 MG/DL (7-18); BUN/CREATININE RATIO 23.6 (6.6-38.0); CALCIUM 8.9 MG/DL (8.5-10.1); CHLORIDE 109 MMOL/L (99-107); CREATININE 0.55 MG/DL (0.40-0.90); GLUCOSE 105 MG/DL (70-104); POTASSIUM 3.9 MMOL/L (3.5-5.1); SODIUM 145 MMOL/L (135-145); eGFR > 90 ML/MIN
--- NOTE | 2018-08-09 06:25 | NUR ---
Patient in room [facility]. I have received report from Baldemar HOOKS and had the opportunity to ask questions and assume patient care.
--- NOTE | 2018-08-09 06:28 | NUR ---
Problems reprioritized. Patient report given, questions answered & plan of care reviewed with tone llanes.
[2018-08-09 06:35] LABS: BASOPHILS % (AUTO) 0.3 % (0-1); EOSINOPHILS % (AUTO) 0.1 % (0-6); HEMATOCRIT 31.7 % (35.0-45.0); HEMOGLOBIN 9.8 g/dl (12.0-16.0); LYMPHOCYTES % (AUTO) 11.8 % (21-51); MEAN CORPUSCULAR HEMOGLOBIN 27.3 PG (27.0-31.0); MEAN CORPUSCULAR VOLUME 88.2 FL (78-98); MEAN PLATELET VOLUME 8.3 FL (7.4-10.4); MONOCYTES # (AUTO) 0.4 X10'3 (0-0.9); MONOCYTES % (AUTO) 4.5 % (2-12); NEUTROPHILS # (AUTO) 7.2 X10'3 (1.8-7.7); NEUTROPHILS % (AUTO) 83.3 % (42-75); PLATELET COUNT 371 X10'3 (140-440); RED CELL DISTRIBUTION WIDTH 15.1 % (11.5-14.5); WHITE BLOOD COUNT 8.7 X10'3 (4.5-11.0)
[2018-08-09] MEDS: K and/or MAG REPLACEMENT MC SCH (06:49)
[2018-08-09] MEDS: docusate sodium 100mg/10ml UD cup PO SCH (06:50)
[2018-08-09] MEDS: aspirin 81mg tab.chew PO SCH (06:50)
[2018-08-09] MEDS: lactobacillus rhamnosus 10,000 MMU CELLS/CAPSULE PO SCH (06:50)
[2018-08-09] MEDS: ferrous sulfate 300mg/5ml UD oral liquid PO SCH (06:51)
[2018-08-09] MEDS: lisinopril 10 MG tablet PO SCH (06:51)
[2018-08-09] MEDS: amLODIPine 5mg tablet PO SCH (06:51)
[2018-08-09] MEDS: heparin, porcine 5000 units/ml vial SQ SCH (07:50)
[2018-08-09 07:51] VITALS: BP 161/71
[2018-08-09] MEDS: BUDESONIDE 0.25 MG/2 ML AMPUL.NEB IH SCH (09:15)
--- NOTE | 2018-08-09 14:55 | NUR ---
TRIMMER SAWYER called for patient desat in 40's on venti mask at 12L. Patient is now on a nonrebreather placed by RT. Patients saturation is not recovering, currently patient is sitting up and saturation is at 44%, HR 114, RR 38, Shallow. Son Luis has been called and will be coming in to the hospital. Patients code status has been changed to Comfort Care with DNR, confirmed by Dr. Hilliard and myself over the phone with Luis. TRIMMER [facility]WY[facility] team responded; RT, SCREEN MAKING SUPERVISOR, Dr. Hilliard. Will continue to monitor and stay with patient until family arrives.
[2018-08-09] MEDS ORDERED: morphine 10mg/ml inj. IV PRN ×3 (15:30→15:50)
[2018-08-09] MEDS ORDERED: LORazepam 2 mg/ml vial IV PRN (15:30)
[2018-08-09] MEDS ORDERED: morphine 10mg/0.5ml (conc. morphine) oral syringe PO PRN (15:30)
--- NOTE | 2018-08-09 17:06 | NUR ---
RN IS TO DOCUMENT YES TO ALL APPLICABLE AREAS Pronouncement of : 1. Time Physician Notified:[id number] 2. Date of :08/09/18 3. Time of : 161 4. DNR/Withdraw life support documented:Y 5. Monitor strip has been placed on chart:Y 6. Assessment process is of one-minute duration and includes following criteria: a) Patient is unresponsive to all stimuli: Y b) Pupils fixed and non-reactive:Y c) Auscultation of precordium reveals absence of heart tones:Y d) Auscultation of lungs reveals absence of breath sounds:Y e) Absence of blood pressure / all vital signs:Y f) QRS complexes are not present on monitor / EKG strip:Y g) Pacer spikes without capture:Y 4. Comments: SONKEON, WAS AT BEDSIDE AT THE TIME OF .
--- NOTE | 2018-08-09 17:14 | NUR ---
Donor network called, Patient is not a Donor qualifier. 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 Paper work completed.
[2018-08-11] MEDS ORDERED: VANCOMYCIN LEVEL IV NR (16:30)
== END 2018-08-09 18:33 | disposition expired | DRG 299 ==
LOC: ER 12:38 → ED HOLD 17:26 → SUR 3N 08-01 18:10
PROVIDERS: ADMIT Internal Medicine; ATTEND Hospitalist
DX: E11.52 Type 2 diabetes mellitus with diabetic peripheral angiopathy with gangrene (principal); L89.214 Pressure ulcer of right hip, stage 4; L89.154 Pressure ulcer of sacral region, stage 4; G93.41 Metabolic encephalopathy; J96.90 Respiratory failure, unspecified, unspecified whether with hypoxia or hypercapnia; M86.171 Other acute osteomyelitis, right ankle and foot; E87.0 Hyperosmolality and hypernatremia; E11.69 Type 2 diabetes mellitus with other specified complication; Z66 Do not resuscitate; G89.29 Other chronic pain; L97.519 Non-pressure chronic ulcer of other part of right foot with unspecified severity; E11.65 Type 2 diabetes mellitus with hyperglycemia; E87.6 Hypokalemia; E11.621 Type 2 diabetes mellitus with foot ulcer; E86.0 Dehydration; D63.8 Anemia in other chronic diseases classified elsewhere; F03.90 Unspecified dementia, unspecified severity, without behavioral disturbance, psychotic disturbance, mood disturbance, and anxiety; Z51.5 Encounter for palliative care; Z89.512 Acquired absence of left leg below knee; Z86.73 Personal history of transient ischemic attack (TIA), and cerebral infarction without residual deficits; Z79.82 Long term (current) use of aspirin; Z79.84 Long term (current) use of oral hypoglycemic drugs
CPT/HCPCS: 36415; 71045; 73630; 80048; 80053; 80061; 80202; 81001; 82948; 83036; 83735; 84132; 85025; 85651; 87070; 87077; 87088; 87186; 92616; 94640; 94760; 96365; 97110; 97162; 99285; G0378; J1644; J1815; J1940; J2270; J2543; J3370; J3480; J3490; J7030; J7626